=== PATIENT | female | born 1995 | race American Indian/Alaskan Native ===

== ENCOUNTER 2018-12-31 14:43 | Emergency (ER) | payer OTHER ==
[2018-12-31 15:51] VITALS: BP 123/82
--- NOTE | 2018-12-31 15:54 | Event Note ---
ED Screening Note ED Screening Note: This initial assessment/diagnostic orders/clinical plan/treatment(s) is/are subject to change based on patients health status, clinical progression and re- assessment by fellow clinical providers in the ED. Further treatment and workup at subsequent clinical providers discretion. Patient/guardian urged not to elope from the ED as their condition may be serious if not clinically assessed and managed. Initial orders include: 23yo BF states that she has L lower abdominal pain, malodorous white vaginal discharge, and bilateral back pain. Pt states that she has been told that she has a cyst on her L ovary.
[2018-12-31 16:31] LABS: Alanine Aminotransferase 9 units/L (7-56); Albumin 4.1 g/dL (3.9-5); BUN/Creatinine Ratio 14; Blood Urea Nitrogen 10 mg/dL (7-17); Calcium 9.4 mg/dL (8.4-10.2); Hemolysis Index 20
[2018-12-31 16:49] LABS: Bacteria,Urine 2+ /HPF (Negative); Bilirubin,Urine NEG (Negative); Blood,Urine SM (Negative); Color,Urine Yellow (Yellow); Mucus,Urine FEW /HPF; Protein,Urine <15 mg/dL mg/dL (Negative); Urobilinogen,Urine < 2.0 mg/dL (<2.0)
[2018-12-31 17:26] LABS: HCG Qualitative,Urine Negative (Negative)
[2018-12-31 17:33] LABS: Basophils % (Auto) 0.3 % (0.0-1.8); Eosinophils # (Auto) 0.1 K/mm3 (0.0-0.4); Eosinophils % (Auto) 0.5 % (0.0-4.3); Hematocrit 34.9 % (30.3-42.9); Hemoglobin 11.1 gm/dl (10.1-14.3); Lymphocytes # (Auto) 3.3 K/mm3 (1.2-5.4); Lymphocytes % (Auto) 29.9 % (13.4-35.0); Mean Corpuscular HGB Conc 32 % (30-34); Mean Corpuscular Volume 82 fl (79-97); Monocytes # (Auto) 0.8 K/mm3 (0.0-0.8); Monocytes % (Auto) 7.6 % (0.0-7.3); Platelet Count 454 K/mm3 (140-440); Red Blood Count 4.26 M/mm3 (3.65-5.03); Red Cell Distribution Width 16.4 % (13.2-15.2)
[2018-12-31] MEDS ORDERED: ZITHROMAX PO ONE (18:09)
[2018-12-31] MEDS ORDERED: XYLOCAINE 1% MPF 5 mL INFILTRATI ONE (18:09)
[2018-12-31] MEDS ORDERED: ROCEPHIN IM ONE (18:09)
--- NOTE | 2018-12-31 18:15 | Emergency Department Report ---
ED Female HPI - General Chief complaint: Urogenital-Female Stated complaint: CYST BURST/VAGINAL DISCOMFORT Time Seen by Provider: 12/31/18 17:49 Source: patient Mode of arrival: Ambulatory Limitations: No Limitations - History of Present Illness Initial comments: This is a 23-year-old female presents to ED complaining of having left-sided vaginal cyst that ruptured 2 days ago. Patient states that she had an appointment today with her [facility] and when she went today she was so that this is ruptured so she left and went to the ER. Patient denies any fever, chills, nausea vomiting, abdominal pain. Patient states that she Are you Now?: No - Related Data Previous Rx's Medication Instructions Recorded Last Taken Type Sulfamethoxazole/Trimethoprim 1 each PO BID #21 tablet 12/31/18 Unknown Rx [Bactrim DS TAB] Allergies Allergy/AdvReac Type Severity Reaction Status Date / Time Penicillins Allergy Anaphylaxis Verified 12/31/18 14:46 ED Review of Systems ROS: Stated complaint: CYST BURST/VAGINAL DISCOMFORT Other details as noted in HPI Comment: All other systems reviewed and negative ED Past Medical Hx - Past Medical History Hx Asthma: Yes - Surgical History Past Surgical History?: No - Social History Smoking Status: Never Smoker Substance Use Type: Alcohol - Medications Home Medications: Home Medications Medication Instructions Recorded Confirmed Last Taken Type Sulfamethoxazole/Trimethoprim 1 each PO BID #21 tablet 12/31/18 Unknown Rx [Bactrim DS TAB] ED Physical Exam - General Limitations: No Limitations General appearance: alert, in no apparent distress - Head Head exam: Present: atraumatic, normocephalic - Eye Eye exam: Present: normal appearance - ENT ENT exam: Present: mucous membranes moist - Neck Neck exam: Present: normal inspection - Respiratory Respiratory exam: Present: normal lung sounds bilaterally. Absent: respiratory distress - Cardiovascular Cardiovascular Exam: Present: regular rate, normal rhythm. Absent: systolic murmur, diastolic murmur, rubs, gallop - GI/Abdominal GI/Abdominal exam: Present: soft, normal bowel sounds - External exam: Present: normal external exam. Absent: lesions, bleeding Speculum exam: Present: vaginal discharge (from the vaginal wall cyst). Absent: cervical discharge, vaginal bleeding, foreign body Bi-manual exam: Present: normal bi-manual exam. Absent: cervical motion tendernes, adnexal tenderness, uterine enlargement - Extremities Exam Extremities exam: Present: normal inspection - Back Exam Back exam: Present: normal inspection - Neurological Exam Neurological exam: Present: alert, oriented X3 - Psychiatric Psychiatric exam: Present: normal affect, normal mood - Skin Skin exam: Present: warm, dry, intact, normal color. Absent: rash ED Course Vital Signs 12/31/18 12/31/18 15:00 19:20 Temperature 97.7 F Pulse Rate 88 82 Respiratory 20 16 Rate Blood Pressure 123/82 [Right] O2 Sat by Pulse 97 100 Oximetry ED Medical Decision Making - Lab Data Result diagrams: 12/31/18 16:01 12/31/18 16:01 Laboratory Last Values WBC 11.0 K/mm3 (4.5-11.0) 12/31/18 16: RBC 4.26 M/mm3 (3.65-5.03) 12/31/18 16:01 Hgb 11.1 gm/dl (10.1-14.3) 12/31/18 16:01 Hct 34.9 % (30.3-42.9) 12/31/18 16:01 MCV 82 fl (79-97) 12/31/18 16:01 MCH 26 pg (28-32) L 12/31/18 16:01 MCHC 32 % (30-34) 12/31/18 16:01 RDW 16.4 % (13.2-15.2) H 12/31/18 16:01 Plt Count 454 K/mm3 (140-440) H 12/31/18 16:01 Lymph % (Auto) 29.9 % (13.4-35.0) 12/31/18 16:01 Whitman % (Auto) 7.6 % (0.0-7.3) H 12/31/18 16:01 Eos % (Auto) 0.5 % (0.0-4.3) 12/31/18 16:01 Baso % (Auto) 0.3 % (0.0-1.8) 12/31/18 16:01 Lymph # 3.3 K/mm3 (1.2-5.4) 12/31/18 16:01 Whitman # 0.8 K/mm3 (0.0-0.8) 12/31/18 16:01 Eos # 0.1 K/mm3 (0.0-0.4) 12/31/18 16:01 Baso # 0.0 K/mm3 (0.0-0.1) 12/31/18 16:01 Seg Neutrophils % 61.7 % (40.0-70.0) 12/31/18 16:01 Seg Neutrophils # 6.8 K/mm3 (1.8-7.7) 12/31/18 16:01 Sodium 137 mmol/L (137-145) 12/31/18 16:01 Potassium 4.0 mmol/L (3.6-5.0) 12/31/18 16:01 Chloride 99.8 mmol/L (98-107) 12/31/18 16:01 Carbon Dioxide 24 mmol/L (22-30) 12/31/18 16:01 Anion Gap 17 mmol/L 12/31/18 16:01 BUN 10 mg/dL (7-17) 12/31/18 16:01 Creatinine 0.7 mg/dL (0.7-1.2) 12/31/18 16:01 Estimated GFR > 60 ml/min 12/31/18 16:01 BUN/Creatinine Ratio 14 % 12/31/18 16:01 Glucose 92 mg/dL (65-100) 12/31/18 16:01 Calcium 9.4 mg/dL (8.4-10.2) 12/31/18 16:01 Total Bilirubin 0.30 mg/dL (0.1-1.2) 12/31/18 16:01 AST 11 units/L (5-40) 12/31/18 16:01 ALT 9 units/L (7-56) 12/31/18 16:01 Alkaline Phosphatase 61 units/L (35-129) 12/31/18 16:01 Total Protein 8.1 g/dL (6.3-8.2) 12/31/18 16:01 Albumin 4.1 g/dL (3.9-5) 12/31/18 16:01 Albumin/Globulin Ratio 1.0 % 12/31/18 16:01 Urine Color Yellow (Yellow) 12/31/18 Unknown Urine Turbidity Slightly-cloudy (Clear) 12/31/18 Unknown Urine pH 7.0 (5.0-7.0) 12/31/18 Unknown Ur Specific [place] 1.008 (1.003-1.030) 12/31/18 Unknown Urine Protein <15 mg/dl mg/dL (Negative) 12/31/18 Unknown Urine Glucose (UA) Neg mg/dL (Negative) 12/31/18 Unknown Urine Ketones Neg mg/dL (Negative) 12/31/18 Unknown Urine Blood Sm (Negative) 12/31/18 Unknown Urine Nitrite Neg (Negative) 12/31/18 Unknown Urine Bilirubin Neg (Negative) 12/31/18 Unknown Urine Urobilinogen < 2.0 mg/dL (<2.0) 12/31/18 Unknown Ur Leukocyte Esterase Lg (Negative) 12/31/18 Unknown Urine WBC (Auto) 168.0 /HPF (0.0-6.0) H 12/31/18 Unknown Urine RBC (Auto) 56.0 /HPF (0.0-6.0) 12/31/18 Unknown U Epithel Cells (Auto) 5.0 /HPF (0-13.0) 12/31/18 Unknown Urine Bacteria (Auto) 2+ /HPF (Negative) 12/31/18 Unknown Urine Mucus Few /HPF 12/31/18 Unknown Urine HCG, Qual Negative (Negative) 12/31/18 Unknown - Medical Decision Making 23-year-old female presents with vaginal wall cyst versus Bartholin cyst which has ruptured. Speculum exam was completed without any protrusion into the vaginal barrera. Discussed the patient symptoms were resolved and to finish taking antibiotics as prescribed. Vital signs are normal patient is in no acute distress. All labs within normal limits. Urinalysis is shows mild infection will treat with antibiotics. Discussed the patient follow-up with [employer] Dr. Ji. Critical care attestation.: If time is entered above; I have spent that time in minutes in the direct care of this critically ill patient, excluding procedure time. ED Disposition Clinical Impression: Vaginal wall cyst Disposition: DC-01 TO HOME OR SELFCARE Is pt being admited?: No Does the pt Need Aspirin: No Condition: Stable Instructions: Bartholin Cyst (ED) Additional Instructions: Make sure to follow up with the primary care physician as discussed. Take all your medications as you've been prescribed. If you have any worsening symptoms or develop new symptoms please return to ED immediately. Prescriptions: Sulfamethoxazole/Trimethoprim [Bactrim DS TAB] 1 each PO BID #21 tablet Referrals: KETTY JI MD [Primary Care Provider] - 3-5 Days Forms: Accompanied Note, Work/School Release Form(ED) Time of Disposition: 18:46
== END 2018-12-31 19:20 | disposition home or self-care (01) ==
LOC: ED 14:43
DX: N89.8 Other specified noninflammatory disorders of vagina (principal); J45.909 Unspecified asthma, uncomplicated; Z88.0 Allergy status to penicillin
CPT/HCPCS: 36415; 80053; 81001; 81025; 85025; 96372; 99284; J0696

== ENCOUNTER 2021-06-12 19:27 | Emergency (ER) | payer SELFPAY ==
[2021-06-12 20:22] VITALS: BP 130/81
== END 2021-06-13 04:53 | disposition left against medical advice (07) ==
LOC: ED 19:27
DX: R51.9 Headache, unspecified (principal); H92.09 Otalgia, unspecified ear; Z53.21 Procedure and treatment not carried out due to patient leaving prior to being seen by health care provider

== ENCOUNTER 2021-07-08 20:56 | Emergency (ER) | payer SELFPAY ==
[2021-07-08 22:55] VITALS: BP 138/80
[2021-07-08 23:43] LABS: Bilirubin,Urine NEG (Negative); Blood,Urine NEG (Negative); Color,Urine Yellow (Yellow); Mucus,Urine 3+ /HPF
[2021-07-08 23:52] LABS: HCG Qualitative,Urine Positive (Negative)
== END 2021-07-09 00:40 | disposition left against medical advice (07) ==
LOC: ED 20:56
DX: O26.891 Other specified pregnancy related conditions, first trimester (principal); R10.9 Unspecified abdominal pain; R51.9 Headache, unspecified; Z53.21 Procedure and treatment not carried out due to patient leaving prior to being seen by health care provider; Z3A.00 Weeks of gestation of pregnancy not specified
CPT/HCPCS: 81001; 81025